=== PATIENT | male | born 1995 | race Caucasian/White ===

== ENCOUNTER 2019-04-15 22:35 | Inpatient (IN) | payer SELFPAY ==
[2019-04-15] MEDS ORDERED: Ondansetron 4 MG/2 ML SDV IVPUSH ONE (22:49)
--- NOTE | 2019-04-15 22:50 | EDM.PDOC ---
ED HPI GENERAL MEDICAL PROBLEM - General Chief Complaint: General Stated Complaint: STOMACH ULCER Time Seen by Provider: 04/15/19 22:49 - History of Present Illness INITIAL COMMENTS - FREE TEXT/NARRATIVE: HISTORY AND PHYSICAL: History of present illness: Past 23-year-old white male presents with a concern of vomiting weight loss and medical screening for ulcer he states he's had esophageal reflux he's had some improvement with Maalox and Tums. He denies melena or hematochezia denies fever chills chest pain or shortness of breath. He rates the pain as 1 out of 10 Review of systems: As per history of present illness and below otherwise all systems reviewed and negative. Past medical history: As per history of present illness and as reviewed below otherwise noncontributory. Surgical history: As per history of present illness and as reviewed below otherwise noncontributory. Social history: No reported history of drug or alcohol abuse. Family history: As per history of present illness and as reviewed below otherwise noncontributory. Physical exam: HEENT: Atraumatic, normocephalic, pupils reactive, negative for conjunctival pallor or scleral icterus, mucous membranes moist, throat clear, neck supple, nontender, trachea midline. Lungs: Clear to auscultation, breath sounds equal bilaterally, chest nontender. Heart: S1S2, regular, negative for clicks, rubs, or JVD. Abdomen: Soft, nondistended, nontender. Negative for masses or hepatosplenomegaly. Negative for costovertebral tenderness. Pelvis: Stable nontender. Genitourinary: Deferred. Rectal: Deferred. Extremities: Atraumatic, negative for cords or calf pain. Neurovascular unremarkable. Neuro: Awake, alert, oriented. Cranial nerves II through XII unremarkable. Cerebellum unremarkable. Motor and sensory unremarkable throughout. Exam nonfocal. Diagnostics: CBC CMP UA UCG lipase chest x-ray Therapeutics: Saline 1 L bolus Protonix 80 mg IV Zofran 4 mg IV insulin drip at 7 units an hour calcium rider 40 mEq over 4 hours Impression: #1 medical screening exam #2 gastritis rule out peptic ulcer disease #3 new- onset diabetes with DKA Definitive disposition and diagnosis as appropriate pending reevaluation and review of above. abdomen Pain Score (Numeric/FACES): 1 - Related Data Allergies Allergy/AdvReac Type Severity Reaction Status Date / Time No Known Allergies Allergy Verified 04/15/19 23:26 Home Meds: Home Meds . [No Known Home Meds] 04/15/19 [History] ED ROS GENERAL - Review of Systems Review Of Systems: ROS reveals no pertinent complaints other than HPI. ED EXAM, GENERAL - Physical Exam Exam: See Below (See dictation) Course - Vital Signs Last Recorded V/S: Last Vital Signs Temp 36.3 C 04/15/19 22:35 Pulse 85 04/16/19 00:44 Resp 17 04/16/19 00:44 BP 114/72 04/16/19 00:44 Pulse Ox 100 04/16/19 00:44 - Orders/Labs/Meds Orders: Active Orders 24 hr Category Date Time Status EKG 12 Lead [EKG Documentation Completion] [RC] STAT Care 04/16/19 00:11 Active Insulin Regular, Human [NovoLIN R] 100 unit Med 04/16/19 00:15 Active Sodium Chloride 0.9% [Normal Saline] 99 ml IV TITRATE Sodium Chloride 0.9% [Normal Saline] 1,000 ml Med 04/15/19 23:00 Active IV ASDIRECTED Sodium Chloride 0.9% [Normal Saline] 1,000 ml Med 04/15/19 23:45 Active IV ASDIRECTED Sodium Chloride 0.9% with KCl [Normal Saline with 40 Med 04/16/19 00:15 Active mEq KCl] 1,000 ml IV ASDIRECTED Medication Orders Sodium Chloride (Normal Saline) 1,000 mls @ 999 mls/hr IV ASDIRECTED PATSY Last Admin: 04/15/19 23:26 Dose: 999 mls/hr Sodium Chloride (Normal Saline) 1,000 mls @ 999 mls/hr IV ASDIRECTED PATSY Last Admin: 04/16/19 00:06 Dose: 999 mls/hr Insulin Human Regular 100 unit (/ Sodium Chloride) 100 mls @ 7 mls/hr IV TITRATE PATSY; Protocol Last Admin: 04/16/19 00:30 Dose: 7 unit/hr, 7 mls/hr Potassium Chloride/Sodium Chloride (Normal Saline With 40 Meq Kcl) 1,000 mls @ 250 mls/hr IV ASDIRECTED PATSY Last Admin: 04/16/19 00:39 Dose: 250 mls/hr Labs: Laboratory Tests 04/15/19 04/15/19 04/15/19 Range/Units 23:04 23:04 23:04 WBC 11.18 H (4.0-11.0) K/uL RBC 5.53 (4.50-5.90) M/uL Hgb 17.6 H (13.0-17.0) g/dL Hct 48.6 (38.0-50.0) % MCV 87.9 (80.0-98.0) fL MCH 31.8 (27.0-32.0) pg MCHC 36.2 (31.0-37.0) g/dL RDW Std Deviation 49.0 (28.0-62.0) fl RDW Coeff of Jerry 16 H (11.0-15.0) % Plt Count 185 (150-400) K/uL MPV 11.10 (7.40-12.00) fL Neut % (Auto) 70.0 (48.0-80.0) % Lymph % (Auto) 10.2 L (16.0-40.0) % Greer % (Auto) 18.4 H (0.0-15.0) % Eos % (Auto) 0.9 (0.0-7.0) % Baso % (Auto) 0.5 (0.0-1.5) % Neut # (Auto) 7.8 H (1.4-5.7) K/uL Lymph # (Auto) 1.1 (0.6-2.4) K/uL Greer # (Auto) 2.1 H (0.0-0.8) K/uL Eos # (Auto) 0.1 (0.0-0.7) K/uL Baso # (Auto) 0.1 (0.0-0.1) K/uL Nucleated RBC % 0.0 /100WBC Nucleated RBCs # 0 K/uL ABG pH (7.35-7.45) ABG pCO2 (35-45) mmHG ABG pO2 (75-100) mmHG ABG HCO3 (22-26) mEq/L ABG Total CO2 ABG Base Excess (-2.0-2.0) Sodium 130 L (136-148) mmol/L Potassium 2.8 L (3.5-5.1) mmol/L Chloride 95 L (98-107) mmol/L Carbon Dioxide 10.2 L (21.0-32.0) mmol/L BUN 9 (7.0-18.0) mg/dL Creatinine 1.4 H (0.8-1.3) mg/dL Est Cr Clr Drug Dosing 84.58 mL/min Estimated GFR (MDRD) > 60.0 ml/min Glucose 566 H* (74-106) mg/dL POC Glucose (60-110) mg/dL Calcium 9.0 (8.5-10.1) mg/dL Magnesium 2.9 H (1.8-2.4) mg/dL Total Bilirubin 0.7 (0.2-1.0) mg/dL AST 7 L (15-37) IU/L ALT 18 (14-63) IU/L Alkaline Phosphatase 248 H (46-116) U/L Total Protein 8.0 (6.4-8.2) g/dL Albumin 4.2 (3.4-5.0) g/dL Globulin 3.8 (2.6-4.0) g/dL Albumin/Globulin Ratio 1.1 (0.9-1.6) Lipase 108 (73-393) U/L Urine Color Urine Appearance Urine pH (5.0-8.0) Ur Specific [place] (1.001-1.035) Urine Protein (NEGATIVE) mg/dL Urine Glucose (UA) (NEGATIVE) mg/dL Urine Ketones (NEGATIVE) mg/dL Urine Occult Blood (NEGATIVE) Urine Nitrite (NEGATIVE) Urine Bilirubin (NEGATIVE) Urine Urobilinogen (<2.0) EU/dL Ur Leukocyte Esterase (NEGATIVE) Urine RBC (0-2/HPF) Urine WBC (0-5/HPF) Ur Epithelial Cells (NONE-FEW) Urine Bacteria (NEGATIVE) Urine Opiates Screen (NEGATIVE) Ur Oxycodone Screen (NEGATIVE) Urine Methadone Screen (NEGATIVE) Ur Barbiturates Screen (NEGATIVE) Ur Phencyclidine Scrn (NEGATIVE) Ur Amphetamine Screen (NEGATIVE) U Methamphetamines Scrn (NEGATIVE) U Benzodiazepines Scrn (NEGATIVE) U Cocaine Metab Screen (NEGATIVE) U Marijuana (THC) Screen (NEGATIVE) 04/15/19 04/15/19 04/16/19 Range/Units 23:40 23:40 00:19 WBC (4.0-11.0) K/uL RBC (4.50-5.90) M/uL Hgb (13.0-17.0) g/dL Hct (38.0-50.0) % MCV (80.0-98.0) fL MCH (27.0-32.0) pg MCHC (31.0-37.0) g/dL RDW Std Deviation (28.0-62.0) fl RDW Coeff of Jerry (11.0-15.0) % Plt Count (150-400) K/uL MPV (7.40-12.00) fL Neut % (Auto) (48.0-80.0) % Lymph % (Auto) (16.0-40.0) % Greer % (Auto) (0.0-15.0) % Eos % (Auto) (0.0-7.0) % Baso % (Auto) (0.0-1.5) % Neut # (Auto) (1.4-5.7) K/uL Lymph # (Auto) (0.6-2.4) K/uL Greer # (Auto) (0.0-0.8) K/uL Eos # (Auto) (0.0-0.7) K/uL Baso # (Auto) (0.0-0.1) K/uL Nucleated RBC % /100WBC Nucleated RBCs # K/uL ABG pH 7.126 L* (7.35-7.45) ABG pCO2 17 L (35-45) mmHG ABG pO2 118 H (75-100) mmHG ABG HCO3 6 L (22-26) mEq/L ABG Total CO2 5.1 ABG Base Excess -21.5 L (-2.0-2.0) Sodium (136-148) mmol/L Potassium (3.5-5.1) mmol/L Chloride (98-107) mmol/L Carbon Dioxide (21.0-32.0) mmol/L BUN (7.0-18.0) mg/dL Creatinine (0.8-1.3) mg/dL Est Cr Clr Drug Dosing mL/min Estimated GFR (MDRD) ml/min Glucose (74-106) mg/dL POC Glucose (60-110) mg/dL Calcium (8.5-10.1) mg/dL Magnesium (1.8-2.4) mg/dL Total Bilirubin (0.2-1.0) mg/dL AST (15-37) IU/L ALT (14-63) IU/L Alkaline Phosphatase (46-116) U/L Total Protein (6.4-8.2) g/dL Albumin (3.4-5.0) g/dL Globulin (2.6-4.0) g/dL Albumin/Globulin Ratio (0.9-1.6) Lipase (73-393) U/L Urine Color YELLOW Urine Appearance HAZY Urine pH 5.5 (5.0-8.0) Ur Specific [place] 1.025 (1.001-1.035) Urine Protein 100 H (NEGATIVE) mg/dL Urine Glucose (UA) 500 H (NEGATIVE) mg/dL Urine Ketones >=80 (NEGATIVE) mg/dL Urine Occult Blood MODERATE H (NEGATIVE) Urine Nitrite NEGATIVE (NEGATIVE) Urine Bilirubin NEGATIVE (NEGATIVE) Urine Urobilinogen 0.2 (<2.0) EU/dL Ur Leukocyte Esterase NEGATIVE (NEGATIVE) Urine RBC 1-2 (0-2/HPF) Urine WBC 0-1 (0-5/HPF) Ur Epithelial Cells RARE (NONE-FEW) Urine Bacteria RARE (NEGATIVE) Urine Opiates Screen NEGATIVE (NEGATIVE) Ur Oxycodone Screen NEGATIVE (NEGATIVE) Urine Methadone Screen NEGATIVE (NEGATIVE) Ur Barbiturates Screen NEGATIVE (NEGATIVE) Ur Phencyclidine Scrn NEGATIVE (NEGATIVE) Ur Amphetamine Screen NEGATIVE (NEGATIVE) U Methamphetamines Scrn NEGATIVE (NEGATIVE) U Benzodiazepines Scrn NEGATIVE (NEGATIVE) U Cocaine Metab Screen NEGATIVE (NEGATIVE) U Marijuana (THC) Screen NEGATIVE (NEGATIVE) 04/16/19 Range/Units 00:52 WBC (4.0-11.0) K/uL RBC (4.50-5.90) M/uL Hgb (13.0-17.0) g/dL Hct (38.0-50.0) % MCV (80.0-98.0) fL MCH (27.0-32.0) pg MCHC (31.0-37.0) g/dL RDW Std Deviation (28.0-62.0) fl RDW Coeff of Jerry (11.0-15.0) % Plt Count (150-400) K/uL MPV (7.40-12.00) fL Neut % (Auto) (48.0-80.0) % Lymph % (Auto) (16.0-40.0) % Greer % (Auto) (0.0-15.0) % Eos % (Auto) (0.0-7.0) % Baso % (Auto) (0.0-1.5) % Neut # (Auto) (1.4-5.7) K/uL Lymph # (Auto) (0.6-2.4) K/uL Greer # (Auto) (0.0-0.8) K/uL Eos # (Auto) (0.0-0.7) K/uL Baso # (Auto) (0.0-0.1) K/uL Nucleated RBC % /100WBC Nucleated RBCs # K/uL ABG pH (7.35-7.45) ABG pCO2 (35-45) mmHG ABG pO2 (75-100) mmHG ABG HCO3 (22-26) mEq/L ABG Total CO2 ABG Base Excess (-2.0-2.0) Sodium (136-148) mmol/L Potassium (3.5-5.1) mmol/L Chloride (98-107) mmol/L Carbon Dioxide (21.0-32.0) mmol/L BUN (7.0-18.0) mg/dL Creatinine (0.8-1.3) mg/dL Est Cr Clr Drug Dosing mL/min Estimated GFR (MDRD) ml/min Glucose (74-106) mg/dL POC Glucose 345 H (60-110) mg/dL Calcium (8.5-10.1) mg/dL Magnesium (1.8-2.4) mg/dL Total Bilirubin (0.2-1.0) mg/dL AST (15-37) IU/L ALT (14-63) IU/L Alkaline Phosphatase (46-116) U/L Total Protein (6.4-8.2) g/dL Albumin (3.4-5.0) g/dL Globulin (2.6-4.0) g/dL Albumin/Globulin Ratio (0.9-1.6) Lipase (73-393) U/L Urine Color Urine Appearance Urine pH (5.0-8.0) Ur Specific [place] (1.001-1.035) Urine Protein (NEGATIVE) mg/dL Urine Glucose (UA) (NEGATIVE) mg/dL Urine Ketones (NEGATIVE) mg/dL Urine Occult Blood (NEGATIVE) Urine Nitrite (NEGATIVE) Urine Bilirubin (NEGATIVE) Urine Urobilinogen (<2.0) EU/dL Ur Leukocyte Esterase (NEGATIVE) Urine RBC (0-2/HPF) Urine WBC (0-5/HPF) Ur Epithelial Cells (NONE-FEW) Urine Bacteria (NEGATIVE) Urine Opiates Screen (NEGATIVE) Ur Oxycodone Screen (NEGATIVE) Urine Methadone Screen (NEGATIVE) Ur Barbiturates Screen (NEGATIVE) Ur Phencyclidine Scrn (NEGATIVE) Ur Amphetamine Screen (NEGATIVE) U Methamphetamines Scrn (NEGATIVE) U Benzodiazepines Scrn (NEGATIVE) U Cocaine Metab Screen (NEGATIVE) U Marijuana (THC) Screen (NEGATIVE) Meds: Medications Generic Name Dose Route Start Last Admin Trade Name Freq PRN Reason Stop Dose Admin Sodium Chloride 1,000 mls @ 999 mls/hr 04/15/19 23:00 04/15/19 23:26 Normal Saline IV 999 mls/hr ASDIRECTED PATSY Administration Sodium Chloride 1,000 mls @ 999 mls/hr 04/15/19 23:45 04/16/19 00:06 Normal Saline IV 999 mls/hr ASDIRECTED PATSY Administration Insulin Human Regular 100 unit 100 mls @ 7 mls/hr 04/16/19 00:15 04/16/19 00: 30 / Sodium Chloride IV 7 unit/hr TITRATE PATSY 7 mls/hr Administration Protocol 7 UNIT/HR Potassium Chloride/Sodium Chloride 1,000 mls @ 250 mls/hr 04/16/19 00:15 00:39 Normal Saline With 40 Meq Kcl IV 250 mls/hr ASDIRECTED PATSY Administration Discontinued Medications Generic Name Dose Route Start Last Admin Trade Name Freq PRN Reason Stop Dose Admin Sodium Chloride Confirm 04/15/19 23:02 04/15/19 23:30 Normal Saline Administered 04/15/19 23:03 20 mls/hr Dose Administration 20 mls @ as directed .ROUTE .STK-MED ONE Ondansetron HCl 4 mg 04/15/19 22:49 04/15/19 23:26 Zofran IVPUSH 04/15/19 22:50 4 mg ONETIME ONE Administration Pantoprazole Sodium 80 mg 04/15/19 22:52 04/15/19 23:30 Protonix Iv IVPUSH 04/15/19 22:53 80 mg BOLUS ONE Administration Departure - Departure Time of Disposition: 01:11 Disposition: Admitted As Inpatient 65 Condition: Serious Clinical Impression: Diabetic ketoacidosis - Discharge Information Referrals: PCP,None [Primary Care Provider] - Forms: ED Department Discharge - My Orders Last 24 Hours: My Active Orders 04/15/19 23:00 Sodium Chloride 0.9% [Normal Saline] 1,000 ml IV ASDIRECTED 04/15/19 23:45 Sodium Chloride 0.9% [Normal Saline] 1,000 ml IV ASDIRECTED 04/16/19 00:11 EKG 12 Lead [EKG Documentation Completion] [RC] STAT 04/16/19 00:15 Insulin Regular, Human [NovoLIN R] 100 unit Sodium Chloride 0.9% [Normal Saline] 99 ml IV TITRATE Sodium Chloride 0.9% with KCl [Normal Saline with 40 mEq KCl] 1,000 ml IV ASDIRECTED - Assessment/Plan Last 24 Hours: My Active Orders 04/15/19 23:00 Sodium Chloride 0.9% [Normal Saline] 1,000 ml IV ASDIRECTED 04/15/19 23:45 Sodium Chloride 0.9% [Normal Saline] 1,000 ml IV ASDIRECTED 04/16/19 00:11 EKG 12 Lead [EKG Documentation Completion] [RC] STAT 04/16/19 00:15 Insulin Regular, Human [NovoLIN R] 100 unit Sodium Chloride 0.9% [Normal Saline] 99 ml IV TITRATE Sodium Chloride 0.9% with KCl [Normal Saline with 40 mEq KCl] 1,000 ml IV ASDIRECTED
[2019-04-15] MEDS ORDERED: Pantoprazole 40 MG Vial IVPUSH ONE (22:52)
[2019-04-15] MEDS ORDERED: Sodium Chloride 0.9% 1,000 ML IV SCH ×2 (23:00→23:45)
[2019-04-15] MEDS ORDERED: Sodium Chloride 0.9% 20 ML ONE (23:02)
[2019-04-15 23:39] LABS: CHLORIDE,CL 95 mmol/L (98-107); SODIUM,NA 130 mmol/L (136-148)
[2019-04-16] MEDS: Sodium Chloride 0.9% with KCl 1,000 ML IV SCH ×2 (00:39→04:38)
--- NOTE | 2019-04-16 00:51 | CR ---
INDICATION: abdominal pain CHEST, ONE VIEW An AP radiograph of the chest was performed. Comparison: No previous studies are currently available for comparison. The lungs appear clear and no pleural effusions are identified. The cardiomediastinal silhouette and pulmonary vasculature appear normal, as do the visualized bones. IMPRESSION: No acute intrathoracic abnormality identified. KENNY WAN MD [facility] Dictated by: Danny Wan MD @ 04/16/2019 00:49:36 (Electronically Signed)
--- NOTE | 2019-04-16 03:43 | PCM.HP ---
H&P History of Present Illness - General Admit Problem/Dx: Admission Diagnosis/Problem Admission Diagnosis/Problem Diabetic ketoacidosis - History of Present Illness Initial Comments - Free Text/Narative: 23 yo male who presented to the ED with complaints of abdominal pain and nausea. He also reports several month history of blurred vision, increased thirst and polyuria. He reports losing a lot of weight recently. abdomen Pain Score (Numeric/FACES): 1 - Related Data Allergies/Adverse Reactions: Allergies Allergy/AdvReac Type Severity Reaction Status Date / Time No Known Allergies Allergy Verified 04/15/19 23:26 Home Medications: Home Meds . [No Known Home Meds] 04/15/19 [History] Past Medical History - Past Health History Medical/Surgical History: Denies Medical/Surgical History Social & Family History - Family History Family Medical History: Noncontributory Endocrine/Metabolic: Reports: Diabetes, type II - Tobacco Use Smoking Status *Q: Never Smoker Second Hand Smoke Exposure: Yes - Alcohol Use Date of Last Drink: 04/09/19 - Recreational Drug Use Recreational Drug Use: No H&P Review of Systems - Review of Systems: Review Of Systems: ROS reveals no pertinent complaints other than HPI. Exam - Vital Signs Vital Signs: Last Vital Signs Temp 36.4 C 04/16/19 01:50 Pulse 85 04/16/19 00:44 Resp 10 L 04/16/19 03:00 BP 94/45 L 04/16/19 03:00 Pulse Ox 94 L 04/16/19 03:00 Weight: 74.344 kg - Exam General: Alert, Oriented HEENT: Mucosa Moist & [place] Neck: Supple Lungs: Clear to Auscultation, Normal Respiratory Effort GI/Abdominal Exam: Soft, Non-Tender Extremities: Non-Tender, No Pedal Edema Skin: Warm, Dry, Intact - Patient Data Lab Results Last 24 hrs: Laboratory Results - last 24 hr 04/15/19 04/15/19 04/15/19 Range/Units 23:04 23:04 23:04 WBC 11.18 H (4.0-11.0) K/uL RBC 5.53 (4.50-5.90) M/uL Hgb 17.6 H (13.0-17.0) g/dL Hct 48.6 (38.0-50.0) % MCV 87.9 (80.0-98.0) fL MCH 31.8 (27.0-32.0) pg MCHC 36.2 (31.0-37.0) g/dL RDW Std Deviation 49.0 (28.0-62.0) fl RDW Coeff of Jerry 16 H (11.0-15.0) % Plt Count 185 (150-400) K/uL MPV 11.10 (7.40-12.00) fL Neut % (Auto) 70.0 (48.0-80.0) % Lymph % (Auto) 10.2 L (16.0-40.0) % [place] % (Auto) 18.4 H (0.0-15.0) % Eos % (Auto) 0.9 (0.0-7.0) % Baso % (Auto) 0.5 (0.0-1.5) % Neut # (Auto) 7.8 H (1.4-5.7) K/uL Lymph # (Auto) 1.1 (0.6-2.4) K/uL [place] # (Auto) 2.1 H (0.0-0.8) K/uL Eos # (Auto) 0.1 (0.0-0.7) K/uL Baso # (Auto) 0.1 (0.0-0.1) K/uL Nucleated RBC % 0.0 /100WBC Nucleated RBCs # 0 K/uL ABG pH (7.35-7.45) ABG pCO2 (35-45) mmHG ABG pO2 (75-100) mmHG ABG HCO3 (22-26) mEq/L ABG Total CO2 ABG Base Excess (-2.0-2.0) Sodium 130 L (136-148) mmol/L Potassium 2.8 L (3.5-5.1) mmol/L Chloride 95 L (98-107) mmol/L Carbon Dioxide 10.2 L (21.0-32.0) mmol/L BUN 9 (7.0-18.0) mg/dL Creatinine 1.4 H (0.8-1.3) mg/dL Est Cr Clr Drug Dosing 84.58 mL/min Estimated GFR (MDRD) > 60.0 ml/min Glucose 566 H* (74-106) mg/dL POC Glucose (60-110) mg/dL Calcium 9.0 (8.5-10.1) mg/dL Magnesium 2.9 H (1.8-2.4) mg/dL Total Bilirubin 0.7 (0.2-1.0) mg/dL AST 7 L (15-37) IU/L ALT 18 (14-63) IU/L Alkaline Phosphatase 248 H (46-116) U/L Total Protein 8.0 (6.4-8.2) g/dL Albumin 4.2 (3.4-5.0) g/dL Globulin 3.8 (2.6-4.0) g/dL Albumin/Globulin Ratio 1.1 (0.9-1.6) Lipase 108 (73-393) U/L Urine Color Urine Appearance Urine pH (5.0-8.0) Ur Specific Blair (1.001-1.035) Urine Protein (NEGATIVE) mg/dL Urine Glucose (UA) (NEGATIVE) mg/dL Urine Ketones (NEGATIVE) mg/dL Urine Occult Blood (NEGATIVE) Urine Nitrite (NEGATIVE) Urine Bilirubin (NEGATIVE) Urine Urobilinogen (<2.0) EU/dL Ur Leukocyte Esterase (NEGATIVE) Urine RBC (0-2/HPF) Urine WBC (0-5/HPF) Ur Epithelial Cells (NONE-FEW) Urine Bacteria (NEGATIVE) Urine Opiates Screen (NEGATIVE) Ur Oxycodone Screen (NEGATIVE) Urine Methadone Screen (NEGATIVE) Ur Barbiturates Screen (NEGATIVE) Ur Phencyclidine Scrn (NEGATIVE) Ur Amphetamine Screen (NEGATIVE) U Methamphetamines Scrn (NEGATIVE) U Benzodiazepines Scrn (NEGATIVE) U Cocaine Metab Screen (NEGATIVE) U Marijuana (THC) Screen (NEGATIVE) 04/15/19 04/15/19 04/16/19 Range/Units 23:40 23:40 00:19 WBC (4.0-11.0) K/uL RBC (4.50-5.90) M/uL Hgb (13.0-17.0) g/dL Hct (38.0-50.0) % MCV (80.0-98.0) fL MCH (27.0-32.0) pg MCHC (31.0-37.0) g/dL RDW Std Deviation (28.0-62.0) fl RDW Coeff of Jerry (11.0-15.0) % Plt Count (150-400) K/uL MPV (7.40-12.00) fL Neut % (Auto) (48.0-80.0) % Lymph % (Auto) (16.0-40.0) % [place] % (Auto) (0.0-15.0) % Eos % (Auto) (0.0-7.0) % Baso % (Auto) (0.0-1.5) % Neut # (Auto) (1.4-5.7) K/uL Lymph # (Auto) (0.6-2.4) K/uL [place] # (Auto) (0.0-0.8) K/uL Eos # (Auto) (0.0-0.7) K/uL Baso # (Auto) (0.0-0.1) K/uL Nucleated RBC % /100WBC Nucleated RBCs # K/uL ABG pH 7.126 L* (7.35-7.45) ABG pCO2 17 L (35-45) mmHG ABG pO2 118 H (75-100) mmHG ABG HCO3 6 L (22-26) mEq/L ABG Total CO2 5.1 ABG Base Excess -21.5 L (-2.0-2.0) Sodium (136-148) mmol/L Potassium (3.5-5.1) mmol/L Chloride (98-107) mmol/L Carbon Dioxide (21.0-32.0) mmol/L BUN (7.0-18.0) mg/dL Creatinine (0.8-1.3) mg/dL Est Cr Clr Drug Dosing mL/min Estimated GFR (MDRD) ml/min Glucose (74-106) mg/dL POC Glucose (60-110) mg/dL Calcium (8.5-10.1) mg/dL Magnesium (1.8-2.4) mg/dL Total Bilirubin (0.2-1.0) mg/dL AST (15-37) IU/L ALT (14-63) IU/L Alkaline Phosphatase (46-116) U/L Total Protein (6.4-8.2) g/dL Albumin (3.4-5.0) g/dL Globulin (2.6-4.0) g/dL Albumin/Globulin Ratio (0.9-1.6) Lipase (73-393) U/L Urine Color YELLOW Urine Appearance HAZY Urine pH 5.5 (5.0-8.0) Ur Specific Blair 1.025 (1.001-1.035) Urine Protein 100 H (NEGATIVE) mg/dL Urine Glucose (UA) 500 H (NEGATIVE) mg/dL Urine Ketones >=80 (NEGATIVE) mg/dL Urine Occult Blood MODERATE H (NEGATIVE) Urine Nitrite NEGATIVE (NEGATIVE) Urine Bilirubin NEGATIVE (NEGATIVE) Urine Urobilinogen 0.2 (<2.0) EU/dL Ur Leukocyte Esterase NEGATIVE (NEGATIVE) Urine RBC 1-2 (0-2/HPF) Urine WBC 0-1 (0-5/HPF) Ur Epithelial Cells RARE (NONE-FEW) Urine Bacteria RARE (NEGATIVE) Urine Opiates Screen NEGATIVE (NEGATIVE) Ur Oxycodone Screen NEGATIVE (NEGATIVE) Urine Methadone Screen NEGATIVE (NEGATIVE) Ur Barbiturates Screen NEGATIVE (NEGATIVE) Ur Phencyclidine Scrn NEGATIVE (NEGATIVE) Ur Amphetamine Screen NEGATIVE (NEGATIVE) U Methamphetamines Scrn NEGATIVE (NEGATIVE) U Benzodiazepines Scrn NEGATIVE (NEGATIVE) U Cocaine Metab Screen NEGATIVE (NEGATIVE) U Marijuana (THC) Screen NEGATIVE (NEGATIVE) 04/16/19 04/16/19 04/16/19 Range/Units 00:52 01:57 03:03 WBC (4.0-11.0) K/uL RBC (4.50-5.90) M/uL Hgb (13.0-17.0) g/dL Hct (38.0-50.0) % MCV (80.0-98.0) fL MCH (27.0-32.0) pg MCHC (31.0-37.0) g/dL RDW Std Deviation (28.0-62.0) fl RDW Coeff of Jerry (11.0-15.0) % Plt Count (150-400) K/uL MPV (7.40-12.00) fL Neut % (Auto) (48.0-80.0) % Lymph % (Auto) (16.0-40.0) % [place] % (Auto) (0.0-15.0) % Eos % (Auto) (0.0-7.0) % Baso % (Auto) (0.0-1.5) % Neut # (Auto) (1.4-5.7) K/uL Lymph # (Auto) (0.6-2.4) K/uL [place] # (Auto) (0.0-0.8) K/uL Eos # (Auto) (0.0-0.7) K/uL Baso # (Auto) (0.0-0.1) K/uL Nucleated RBC % /100WBC Nucleated RBCs # K/uL ABG pH (7.35-7.45) ABG pCO2 (35-45) mmHG ABG pO2 (75-100) mmHG ABG HCO3 (22-26) mEq/L ABG Total CO2 ABG Base Excess (-2.0-2.0) Sodium (136-148) mmol/L Potassium (3.5-5.1) mmol/L Chloride (98-107) mmol/L Carbon Dioxide (21.0-32.0) mmol/L BUN (7.0-18.0) mg/dL Creatinine (0.8-1.3) mg/dL Est Cr Clr Drug Dosing mL/min Estimated GFR (MDRD) ml/min Glucose (74-106) mg/dL POC Glucose 345 H 332 H 232 H (60-110) mg/dL Calcium (8.5-10.1) mg/dL Magnesium (1.8-2.4) mg/dL Total Bilirubin (0.2-1.0) mg/dL AST (15-37) IU/L ALT (14-63) IU/L Alkaline Phosphatase (46-116) U/L Total Protein (6.4-8.2) g/dL Albumin (3.4-5.0) g/dL Globulin (2.6-4.0) g/dL Albumin/Globulin Ratio (0.9-1.6) Lipase (73-393) U/L Urine Color Urine Appearance Urine pH (5.0-8.0) Ur Specific Blair (1.001-1.035) Urine Protein (NEGATIVE) mg/dL Urine Glucose (UA) (NEGATIVE) mg/dL Urine Ketones (NEGATIVE) mg/dL Urine Occult Blood (NEGATIVE) Urine Nitrite (NEGATIVE) Urine Bilirubin (NEGATIVE) Urine Urobilinogen (<2.0) EU/dL Ur Leukocyte Esterase (NEGATIVE) Urine RBC (0-2/HPF) Urine WBC (0-5/HPF) Ur Epithelial Cells (NONE-FEW) Urine Bacteria (NEGATIVE) Urine Opiates Screen (NEGATIVE) Ur Oxycodone Screen (NEGATIVE) Urine Methadone Screen (NEGATIVE) Ur Barbiturates Screen (NEGATIVE) Ur Phencyclidine Scrn (NEGATIVE) Ur Amphetamine Screen (NEGATIVE) U Methamphetamines Scrn (NEGATIVE) U Benzodiazepines Scrn (NEGATIVE) U Cocaine Metab Screen (NEGATIVE) U Marijuana (THC) Screen (NEGATIVE) Result Diagrams: 04/15/19 23:04 04/15/19 23:04 Problem List Initiated/Reviewed/Updated: Yes Orders Last 24hrs: Active Orders 24 hr Category Date Time Status Patient Status [ADT] Stat ADT 04/16/19 01:12 Active Accu Check [Blood Glucose Check, Bedside] [RC] Q1HR Care 04/16/19 03:23 Active Antiembolic Devices [RC] PER UNIT ROUTINE Care 04/16/19 03:35 Ordered Oxygen Therapy [RC] PRN Care 04/16/19 03:35 Ordered Up ad Yudy [RC] ASDIRECTED Care 04/16/19 03:34 Ordered VTE/DVT Education [RC] PER UNIT ROUTINE Care 04/16/19 03:35 Ordered Vital Signs [RC] Q4H Care 04/16/19 03:35 Ordered Consult to Diabetic Nurse Specialist [CONS] Routine Cons 04/16/19 03:34 Ordered [place] [employer] Diet [DIET] Diet 04/16/19 Breakfast Ordered BASIC METABOLIC PANEL,BMP [CHEM] Q4H Lab 04/16/19 04:00 Ordered BASIC METABOLIC PANEL,BMP [CHEM] Q4H Lab 04/16/19 08:00 Ordered BASIC METABOLIC PANEL,BMP [CHEM] Q4H Lab 04/16/19 12:00 Ordered BASIC METABOLIC PANEL,BMP [CHEM] Q4H Lab 04/16/19 16:00 Ordered BASIC METABOLIC PANEL,BMP [CHEM] Q4H Lab 04/16/19 20:00 Ordered Insulin Regular, Human [NovoLIN R] 100 unit Med 04/16/19 00:15 Active Sodium Chloride 0.9% [Normal Saline] 99 ml IV TITRATE Sodium Chloride 0.9% [Normal Saline] 1,000 ml Med 04/15/19 23:00 Active IV ASDIRECTED Sodium Chloride 0.9% [Normal Saline] 1,000 ml Med 04/15/19 23:45 Active IV ASDIRECTED Sodium Chloride 0.9% with KCl [Normal Saline with 40 Med 04/16/19 00:15 Active mEq KCl] 1,000 ml IV ASDIRECTED Sequential Compression Device [OM.PC] Per Unit Routine Oth 04/16/19 03:35 Ordered Resuscitation Status Routine Resus Stat 04/16/19 03:34 Ordered Medication Orders Sodium Chloride (Normal Saline) 1,000 mls @ 999 mls/hr IV ASDIRECTED PATSY Last Admin: 04/15/19 23:26 Dose: 999 mls/hr Sodium Chloride (Normal Saline) 1,000 mls @ 999 mls/hr IV ASDIRECTED PATSY Last Admin: 04/16/19 00:06 Dose: 999 mls/hr Insulin Human Regular 100 unit (/ Sodium Chloride) 100 mls @ 7 mls/hr IV TITRATE PATSY; Protocol Last Titration: 04/16/19 03:04 Dose: 2.5 unit/hr, 2.5 mls/hr Titration: 04/16/19 01:58 Dose: 5 unit/hr, 5 mls/hr Admin: 04/16/19 00:30 Dose: 7 unit/hr, 7 mls/hr Potassium Chloride/Sodium Chloride (Normal Saline With 40 Meq Kcl) 1,000 mls @ 250 mls/hr IV ASDIRECTED PATSY Last Admin: 04/16/19 00:39 Dose: 250 mls/hr Assessment/Plan Comment:: 23 yo male admitted for diabetic ketoacidosis with new onset diabetes. We will resuscitate with IV fluids and tread with IV insulin. We will trend BMP to monitor improvement in anion gap acidosis.
[2019-04-16 04:20] LABS: CHLORIDE,CL 109 mmol/L (98-107); SODIUM,NA 138 mmol/L (136-148)
[2019-04-16] MEDS: Potassium Phosphates 30 MMOLE in Sodium Chloride 0.9% 500 ML IV ONE ×2 (05:38→05:40)
[2019-04-16] MEDS: D5 1/2 NS w/ 20 mEq/L KCl 1,000 ML IV SCH ×3 (05:40→21:59)
[2019-04-16 08:32] LABS: CHLORIDE,CL 112 mmol/L (98-107); SODIUM,NA 141 mmol/L (136-148)
[2019-04-16 12:27] LABS: CHLORIDE,CL 109 mmol/L (98-107); SODIUM,NA 137 mmol/L (136-148)
[2019-04-16] MEDS ORDERED: Potassium Chloride 20 MEQ Tab.ER PO ONE (13:15)
[2019-04-16] MEDS ORDERED: Potassium Phosphates 30 MMOLE in Sodium Chloride 0.9% 500 ML IV ONE ×2 (13:16→16:40)
[2019-04-16 16:32] LABS: CHLORIDE,CL 107 mmol/L (98-107); SODIUM,NA 136 mmol/L (136-148)
[2019-04-16] MEDS: Potassium Chloride 20 MEQ Tab.ER PO SCH (17:29)
[2019-04-16] MEDS: Phosphorus #1 250 MG Tab PO SCH ×2 (17:30→23:04)
[2019-04-16 20:30] LABS: CHLORIDE,CL 107 mmol/L (98-107); SODIUM,NA 136 mmol/L (136-148)
[2019-04-16] MEDS ORDERED: Potassium Chloride Riders 40 MEQ in Premix Bag 1 BAG IV ONE (20:55)
[2019-04-16] MEDS ORDERED: Insulin Glargine,Human Rec. Analog 100 Units/ML 3 ML Pen SUBCUT SCH (21:00)
[2019-04-17 00:28] LABS: CHLORIDE,CL 107 mmol/L (98-107); SODIUM,NA 140 mmol/L (136-148)
[2019-04-17] MEDS ORDERED: Potassium Chloride Riders 40 MEQ in Premix Bag 1 BAG IV ONE (02:14)
[2019-04-17] MEDS ORDERED: Sodium Chloride 0.9% with KCl 500 ML IV SCH (04:45)
[2019-04-17] MEDS ORDERED: Potassium Chloride 40 MEQ in Sodium Chloride 0.9% 480 ML IV ONE (05:00)
[2019-04-17] MEDS: Phosphorus #1 250 MG Tab PO SCH (05:14)
[2019-04-17] MEDS ORDERED: Insulin Aspart 100 Units/ML 3 ML Pen SUBCUT SCH (07:30)
[2019-04-17 08:26] LABS: CHLORIDE,CL 105 mmol/L (98-107); SODIUM,NA 137 mmol/L (136-148)
[2019-04-17] MEDS: Potassium Chloride 20 MEQ Tab.ER PO SCH (08:34)
[2019-04-17] MEDS ORDERED: Nicotine Polacrilex 4 MG Gum CHEW PRN (09:13)
[2019-04-17] MEDS ORDERED: Nicotine 21 MG/24 Hr Patch TRDERM SCH (09:15)
[2019-04-17] MEDS ORDERED: Sodium Chloride 0.9% with KCl 1,000 ML IV SCH (09:30)
--- NOTE | 2019-04-17 10:22 | PCM.DCSUM1 ---
Discharge Summary - Discharge Data Discharge Date: 04/17/19 Discharge Disposition: Home, Self-Care 01 Condition: Fair - Patient Summary/Data Consults: Consultations 04/16/19 03:34 Consult to Diabetic Nurse Specialist [CONS] Routine Hospital Course: Patient is a 23 yo male who was admitted for diabetic ketoacidosis and new onset diabetes. He presented with abdominal pain and nausea. He also reported several week history of polydipsia, polyuria and blurred vision. He was found to have a glucose of 566, potassium of 2.8, phosphate of 1.3, and bicarb of 10.2. He was treated with insulin drip and fluid rescucitation. His potassium and phosphate were replaced by IV and PO medication. When his anion gap closed he was switched to lantus 22 units subcu daily. He was also started on premeal novolog sliding scale insulin. Today he is requesting discharge. He is to be discharge home after visiting with family life educator. He is to follow up at the end of the week with [facility]. - Discharge Plan Prescriptions/Med Rec: Insulin Aspart [NovoLOG] 0 - 10 unit SUBCUT TID #1 pen Insulin Glarg,Human.Rec.Analog [Lantus Solostar] 22 units SUBCUT BEDTIME #1 pen Magnesium Oxide [Magnesium] 200 mg PO DAILY #14 tab.chew Potassium Chloride [Klor-Con M20] 40 meq PO DAILY #14 tab.er Home Medications: Home Meds Insulin Aspart [NovoLOG] 0 - 10 unit SUBCUT TID #1 pen 04/17/19 [Rx] Insulin Glarg,Human.Rec.Analog [Lantus Solostar] 22 units SUBCUT BEDTIME #1 pen 04/17/19 [Rx] Magnesium Oxide [Magnesium] 200 mg PO DAILY #14 tab.chew 04/17/19 [Rx] Potassium Chloride [Klor-Con M20] 40 meq PO DAILY #14 tab.er 04/17/19 [Rx] Forms: ED Department Discharge Referrals: PCP,None [Primary Care Provider] - - Patient Data Vitals - Most Recent: Last Vital Signs Temp 36.0 C 04/17/19 08:00 Pulse 82 04/17/19 10:00 Resp 16 04/17/19 10:00 BP 86/46 L 04/17/19 10:00 Pulse Ox 97 04/17/19 10:00 Weight - Most Recent: 74.344 kg I&O - Last 24 hours: Intake & Output 04/16/19 04/17/19 04/17/19 22:59 06:59 14:59 Intake Total 3533 2237 Output Total 600 3050 Balance 2933 -813 Lab Results - Last 24 hrs: Laboratory Results - last 24 hr 04/16/19 04/16/19 04/16/19 Range/Units 11:22 12:01 13:11 Sodium 137 (136-148) mmol/L Potassium 2.5 L (3.5-5.1) mmol/L Chloride 109 H (98-107) mmol/L Carbon Dioxide 16.8 L (21.0-32.0) mmol/L BUN 7 (7.0-18.0) mg/dL Creatinine 0.9 (0.8-1.3) mg/dL Est Cr Clr Drug Dosing 133.08 mL/min Estimated GFR (MDRD) > 60.0 ml/min Glucose 246 H (74-106) mg/dL POC Glucose 228 H 203 H (60-110) mg/dL Calcium 7.9 L (8.5-10.1) mg/dL Phosphorus 1.7 L (2.6-4.7) mg/dL Magnesium 2.2 (1.8-2.4) mg/dL 04/16/19 04/16/19 04/16/19 Range/Units 14:20 15:13 16:07 Sodium 136 (136-148) mmol/L Potassium 2.7 L (3.5-5.1) mmol/L Chloride 107 (98-107) mmol/L Carbon Dioxide 15.9 L (21.0-32.0) mmol/L BUN 7 (7.0-18.0) mg/dL Creatinine 0.9 (0.8-1.3) mg/dL Est Cr Clr Drug Dosing 133.08 mL/min Estimated GFR (MDRD) > 60.0 ml/min Glucose 270 H (74-106) mg/dL POC Glucose 222 H 248 H (60-110) mg/dL Calcium 7.8 L (8.5-10.1) mg/dL Phosphorus 2.0 L (2.6-4.7) mg/dL Magnesium (1.8-2.4) mg/dL 04/16/19 04/16/19 04/16/19 Range/Units 16:11 17:20 18:13 Sodium (136-148) mmol/L Potassium (3.5-5.1) mmol/L Chloride (98-107) mmol/L Carbon Dioxide (21.0-32.0) mmol/L BUN (7.0-18.0) mg/dL Creatinine (0.8-1.3) mg/dL Est Cr Clr Drug Dosing mL/min Estimated GFR (MDRD) ml/min Glucose (74-106) mg/dL POC Glucose 249 H 212 H 180 H (60-110) mg/dL Calcium (8.5-10.1) mg/dL Phosphorus (2.6-4.7) mg/dL Magnesium (1.8-2.4) mg/dL 04/16/19 04/16/19 04/16/19 Range/Units 20:03 20:03 20:08 Sodium 136 (136-148) mmol/L Potassium 3.2 L (3.5-5.1) mmol/L Chloride 107 (98-107) mmol/L Carbon Dioxide 20.0 L (21.0-32.0) mmol/L BUN 6 L (7.0-18.0) mg/dL Creatinine 0.8 (0.8-1.3) mg/dL Est Cr Clr Drug Dosing 149.72 mL/min Estimated GFR (MDRD) > 60.0 ml/min Glucose 337 H (74-106) mg/dL POC Glucose 280 H (60-110) mg/dL Calcium 7.6 L (8.5-10.1) mg/dL Phosphorus 2.6 (2.6-4.7) mg/dL Magnesium 2.1 (1.8-2.4) mg/dL 04/16/19 04/16/19 04/16/19 Range/Units 21:14 22:04 22:59 Sodium (136-148) mmol/L Potassium (3.5-5.1) mmol/L Chloride (98-107) mmol/L Carbon Dioxide (21.0-32.0) mmol/L BUN (7.0-18.0) mg/dL Creatinine (0.8-1.3) mg/dL Est Cr Clr Drug Dosing mL/min Estimated GFR (MDRD) ml/min Glucose (74-106) mg/dL POC Glucose 287 H 234 H 187 H (60-110) mg/dL Calcium (8.5-10.1) mg/dL Phosphorus (2.6-4.7) mg/dL Magnesium (1.8-2.4) mg/dL 04/16/19 04/16/19 04/17/19 Range/Units 23:48 23:49 01:08 Sodium 140 (136-148) mmol/L Potassium 2.9 L (3.5-5.1) mmol/L Chloride 107 (98-107) mmol/L Carbon Dioxide 19.1 L (21.0-32.0) mmol/L BUN 6 L (7.0-18.0) mg/dL Creatinine 0.8 (0.8-1.3) mg/dL Est Cr Clr Drug Dosing 149.72 mL/min Estimated GFR (MDRD) > 60.0 ml/min Glucose 202 H (74-106) mg/dL POC Glucose 192 H 174 H (60-110) mg/dL Calcium 8.2 L (8.5-10.1) mg/dL Phosphorus (2.6-4.7) mg/dL Magnesium (1.8-2.4) mg/dL 04/17/19 04/17/19 Range/Units 07:56 08:23 Sodium 137 (136-148) mmol/L Potassium 2.8 L (3.5-5.1) mmol/L Chloride 105 (98-107) mmol/L Carbon Dioxide 20.7 L (21.0-32.0) mmol/L BUN 4 L (7.0-18.0) mg/dL Creatinine 0.7 L (0.8-1.3) mg/dL Est Cr Clr Drug Dosing 171.11 mL/min Estimated GFR (MDRD) > 60.0 ml/min Glucose 213 H (74-106) mg/dL POC Glucose 194 H (60-110) mg/dL Calcium 8.0 L (8.5-10.1) mg/dL Phosphorus (2.6-4.7) mg/dL Magnesium (1.8-2.4) mg/dL Med Orders - Current: Current Medications Potassium Chloride/Sodium Chloride (Normal Saline With 40 Meq Kcl) 1,000 mls @ 150 mls/hr IV ASDIRECTED PATSY Stop: 04/17/19 16:09 Insulin Aspart (Novolog) 0 unit SUBCUT TIDAC PATSY; Protocol Last Admin: 04/17/19 08:33 Dose: 1 unit Insulin Glargine (Lantus Solostar) 22 units SUBCUT BEDTIME PATSY Last Admin: 04/16/19 22:57 Dose: 22 unit Nicotine (Habitrol) 21 mg TRDERM DAILY PATSY Potassium Chloride (Klor-Con M20) 40 meq PO DAILY PATSY Last Admin: 04/17/19 08:34 Dose: 40 meq Sodium Phosphate (Neutra-Phos) 250 mg PO QID PATSY Last Admin: 04/17/19 05:14 Dose: 250 mg Discontinued Medications Sodium Chloride (Normal Saline) 1,000 mls @ 999 mls/hr IV ASDIRECTED PATSY Last Admin: 04/15/19 23:26 Dose: 999 mls/hr Sodium Chloride (Normal Saline) Confirm Administered Dose 20 mls @ as directed .ROUTE .STK-MED ONE Stop: 04/15/19 23:03 Last Admin: 04/15/19 23:30 Dose: 20 mls/hr Sodium Chloride (Normal Saline) 1,000 mls @ 999 mls/hr IV ASDIRECTED PATSY Last Admin: 04/16/19 00:06 Dose: 999 mls/hr Insulin Human Regular 100 unit (/ Sodium Chloride) 100 mls @ 7 mls/hr IV TITRATE PATSY; Protocol Last Titration: 04/16/19 03:04 Dose: 2.5 unit/hr, 2.5 mls/hr Potassium Chloride/Sodium Chloride (Normal Saline With 40 Meq Kcl) 1,000 mls @ 250 mls/hr IV ASDIRECTED PATSY Last Admin: 04/16/19 04:38 Dose: 250 mls/hr Insulin Human Regular 100 unit (/ Sodium Chloride) 100 mls @ 2.5 mls/hr IV TITRATE PATSY; Protocol Last Titration: 04/16/19 05:08 Dose: 2 unit/hr, 2 mls/hr Potassium Chloride/Dextrose/Sod Cl (D5 1/2 Ns W/ 20 Meq/L Kcl) 1,000 mls @ 125 mls/hr IV ASDIRECTED PATSY Last Admin: 04/16/19 21:59 Dose: 125 mls/hr Potassium Phosphate 30 mmole/ (Sodium Chloride) 510 mls @ 127.5 mls/hr IV NOW ONE Stop: 04/16/19 05:24 Last Admin: 04/16/19 05:40 Dose: 127.5 mls/hr Insulin Human Regular 100 unit (/ Sodium Chloride) 100 mls @ 2 mls/hr IV TITRATE PATSY; Protocol Last Titration: 04/17/19 01:04 Dose: 0 unit/hr, 0 mls/hr Insulin Human Regular 100 unit (/ Sodium Chloride) 100 mls @ as directed IV .STK-MED ONE Stop: 04/16/19 00:02 Potassium Phosphate 30 mmole/ (Sodium Chloride) 510 mls @ 127.5 mls/hr IV NOW ONE Stop: 04/16/19 13:17 Last Admin: 04/16/19 14:04 Dose: 127.5 mls/hr Potassium Phosphate 30 mmole/ (Sodium Chloride) 510 mls @ 127.5 mls/hr IV NOW ONE Stop: 04/16/19 16:41 Last Admin: 04/16/19 19:20 Dose: 127.5 mls/hr Potassium Chloride 40 meq/ (Premix) 100 mls @ 25 mls/hr IV ONETIME ONE Stop: 04/17/19 00:54 Last Admin: 04/16/19 21:40 Dose: Not Given Potassium Chloride 40 meq/ (Premix) 100 mls @ 25 mls/hr IV ONETIME ONE Stop: 04/17/19 06:13 Last Admin: 04/17/19 04:50 Dose: Not Given Potassium Chloride/Sodium Chloride (Normal Saline With 40 Meq Kcl) 500 mls @ 125 mls/hr IV ASDIRECTED [facility] Potassium Chloride 40 meq/ (Sodium Chloride) 500 mls @ 125 mls/hr IV ONETIME ONE Stop: 04/17/19 08:59 Last Admin: 04/17/19 05:03 Dose: 125 mls/hr Ondansetron HCl (Zofran) 4 mg IVPUSH ONETIME ONE Stop: 04/15/19 22:50 Last Admin: 04/15/19 23:26 Dose: 4 mg Pantoprazole Sodium (Protonix Iv) 80 mg IVPUSH BOLUS ONE Stop: 04/15/19 22:53 Last Admin: 04/15/19 23:30 Dose: 80 mg Potassium Chloride (Klor-Con M20) 40 meq PO ONETIME ONE Stop: 04/16/19 13:16 Last Admin: 04/16/19 14:11 Dose: 40 meq
[2019-04-17 10:54] LABS: CHLORIDE,CL 103 mmol/L (98-107); SODIUM,NA 135 mmol/L (136-148)
== END 2019-04-17 11:50 | disposition home or self-care (01) | DRG 639 ==
LOC: MW.ED 22:35 → MW.ICU 04-16 01:31
PROVIDERS: ADMIT Internal Medicine; ATTEND Internal Medicine
DX: E11.10 Type 2 diabetes mellitus with ketoacidosis without coma (principal); H54.7 Unspecified visual loss; K21.9 Gastro-esophageal reflux disease without esophagitis; E87.6 Hypokalemia; E83.42 Hypomagnesemia; E83.39 Other disorders of phosphorus metabolism; Z79.4 Long term (current) use of insulin
CPT/HCPCS: 36415; 36600; 71045; 71045-26; 80048; 80053; 80305-QW; 81001; 82803; 82962; 83690; 83735; 84100; 85025; 93005; 96361; 96374; 96375; 99285-25; A9270-GY; C9113; J1815-GY; J2405; J3480; J7030; J7040